=== PATIENT | female | born 1975 | race African-American/Black ===

== ENCOUNTER 2020-01-27 20:31 | Emergency (ER) | payer OTHER ==
[~2020-01-27] VITALS: Ht 162.6 cm; Wt 74.1 kg
[~2020-01-27 20:31] MED LIST: ONDA-104 PO; PREN1TAB52 PO
[2020-01-28 02:36] VITALS: BP 120/80
== END 2020-01-28 03:00 | disposition home or self-care (01) ==
LOC: EMS 20:31
DX: S86.011A Strain of right Achilles tendon, initial encounter (principal); X50.9XXA Other and unspecified overexertion or strenuous movements or postures, initial encounter; Y93.89 Activity, other specified; Y92.89 Other specified places as the place of occurrence of the external cause; Y99.8 Other external cause status
CPT/HCPCS: 29515

== ENCOUNTER 2022-06-21 08:08 | Emergency (ER) | payer OTHER ==
[~2022-06-21] VITALS: Ht 162.6 cm; Wt 79.5 kg
[2022-06-21 08:11] VITALS: BP 137/75
== END 2022-06-21 10:56 | disposition home or self-care (01) ==
LOC: EMS 08:11
DX: S82.401A Unspecified fracture of shaft of right fibula, initial encounter for closed fracture (principal); F12.90 Cannabis use, unspecified, uncomplicated; Z88.0 Allergy status to penicillin; X58.XXXA Exposure to other specified factors, initial encounter; Y93.89 Activity, other specified; Y92.89 Other specified places as the place of occurrence of the external cause; Y99.8 Other external cause status
CPT/HCPCS: 29515; 99283